=== PATIENT | male | born 1975 | race Caucasian/White ===

== ENCOUNTER → 2019-06-26 | Outpatient (CLI) | payer OTHER | LOC: COL.RAD 09:06 | DX: R10.9 Unspecified abdominal pain (principal) ==

== ENCOUNTER 2022-07-31 07:16 | Day surgery (SDC) | payer OTHER ==
[~2022-07-31] VITALS: Ht 190.5 cm; Wt 146.6 kg
[2022-07-31] MEDS ORDERED: ALLEGRA 180MG180 MG PO (07:33)
[2022-07-31 08:45] VITALS: BP 144/79; PULSE 62; TEMP 97
[2022-07-31 09:00] VITALS: BP 130/87; PULSE 66
[2022-07-31 09:08] VITALS: BP 141/86; PULSE 64
--- NOTE | 2022-07-31 09:10 | NUR ---
0845 RETURNS TO ROOM 6 PER CART. AWAKE, ALERT. AMBULATES TO RECLINER WITH STANDBY ASSIST. SEATED WITH LEGS ELEVATED. VITAL SIGNS OBTAINED. DENIES NAUSEA OR ABD PAIN. HERE. CALL LIGHT AT SIDE. 0855 TOLERATES PO MUFFIN AND JUICE WITHOUT NAUSEA. 0858 DR. KENYON HERE TO VISIT WITH PATIENT. 0901 DISCHARGE INSTRUCTIONS REVIEWED WITH PATIENT AND VERBALIZING UNDERSTANDING. COPY PLACE IN PATIENT DISCHARGE FOLDER. 0910 AFTER DRESSING SELF, PATIENT DISCHARGED PER WHEELCHAIR TO VEHICLE DRIVEN BY .
== END 2022-07-31 09:10 | disposition home or self-care (01) ==
LOC: SDCO 07:16
DX: Z12.11 Encounter for screening for malignant neoplasm of colon (principal); D12.3 Benign neoplasm of transverse colon
CPT/HCPCS: J2704; J7120